=== PATIENT | female | born 1990 ===

== ENCOUNTER 2017-02-10 01:34 | Emergency (ER) | payer SELFPAY ==
[2017-02-10 01:38] VITALS: BMI 21.6
[2017-02-10 01:44] VITALS: TEMP 98.4
[2017-02-10] MEDS: Albuterol-Ipratrop 3 mg / 0.5 (3 ml) UD IH SCH ×3 (02:20→03:08)
[2017-02-10 02:21] VITALS: RESP 20
--- NOTE | 2017-02-10 02:23 | ED PDOC ---
Arrival/HPI - General Chief Complaint: Respiratory Distress Time Seen by Provider: 02/10/17 01:35 Historian: Patient - History of Present Illness Narrative History of Present Illness (Text): 02/10/17 02:19 Magali Bella, a 26 year old female, whose past medical history includes asthma, presents to the emergency department complaining of shortness of breath and an exacerbated cough for the past three days. Patient reports she has never been to the hospital before. She notes that from the first day of her cough, she also had a fever. Patient denies nausea, vomiting, chest pain, headache or any other complaints at this time. Time/Duration: Other (3 days) Symptom Onset: Gradual Symptom Course: Unchanged Activities at Onset: Rest Modifying Factors (Text): none Context: Home Associated Symptoms (Text): fever Past Medical History - Provider Review Nursing Documentation Reviewed: Yes - Travel History If Yes, travel location?: [facility] - Cardiac Hx Cardiac Disorders: No - Pulmonary Hx Asthma: Yes - Neurological Hx Neurological Disorder: No - HEENT Hx HEENT Disorder: No - Renal Hx Renal Disorder: No - Endocrine/Metabolic Hx Endocrine Disorders: No - Hematological/Oncological Hx Blood Disorders: No - Integumentary Hx Dermatological Disorder: No - Musculoskeletal/Rheumatological Hx Musculoskeletal Disorders: No - Gastrointestinal Hx Gastrointestinal Disorders: No - Genitourinary/Gynecological Hx Genitourinary Disorders: No - Psychiatric Hx Psychophysiologic Disorder: No Hx Substance Use: No - Surgical History Hx Appendectomy: Yes Family/Social History - Physician Review Nursing Documentation Reviewed: Yes Family/Social History: No Known Family HX Smoking Status: Never Smoked Hx Alcohol Use: Yes Frequency of alcohol use: Socially Hx Substance Use: No Allergies/Home Meds Allergies/Adverse Reactions: Allergies aspirin Allergy (Verified 02/10/17 01:38) ANAPHYLAXIS diclofenac Allergy (Verified 02/10/17 01:39) ANAPHYLAXIS shellfish derived Allergy (Verified 02/10/17 01:39) ANAPHYLAXIS Home Medications: Home Meds Medication Instructions Recorded Confirmed Albuterol HFA [Ventolin HFA 90 1 puff INH PRN PRN 02/10/17 02/10/17 mcg/actuation (8 g)] Review of Systems - Physician Review All systems were reviewed & negative as marked: Yes - Review of Systems Constitutional: Fevers Respiratory: SOB, Cough Gastrointestinal: absent: Nausea, Vomiting Neurological: absent: Headache Physical Exam Vital Signs Reviewed: Yes Vital Signs Temp Pulse Resp BP Pulse Ox 02/10/17 03:11 98.4 F 74 20 114/72 99 02/10/17 02:20 20 02/10/17 01:43 98.4 F 91 H 16 121/75 98 Temperature: Afebrile Blood Pressure: Normal Pulse: Regular Respiratory Rate: Normal Appearance: Positive for: Well-Appearing, Non-Toxic, Comfortable Pain Distress: None Mental Status: Positive for: Alert and Oriented X 3 - Systems Exam Head: Present: Atraumatic, Normocephalic Pupils: Present: PERRL Extroacular Muscles: Present: EOMI Conjunctiva: Present: Normal Mouth: Present: Moist Mucous Membranes Neck: Present: Normal Range of Motion Respiratory/Chest: Present: Wheezes (scattered). No: Accessory Muscle Use Cardiovascular: Present: Regular Rate and Rhythm, Normal S1, S2. No: Murmurs Abdomen: Present: Normal Bowel Sounds. No: Tenderness, Distention, Peritoneal Signs Upper Extremity: Present: Normal Inspection. No: Cyanosis, Edema Lower Extremity: Present: Normal Inspection. No: Edema Neurological: Present: GCS=15, CN II-XII Intact, Speech Normal Skin: Present: Warm, Dry, Normal Color. No: Rashes Psychiatric: Present: Alert, Oriented x 3, Normal Insight, Normal Concentration Medical Decision Making ED Course and Treatment: 02/10/17 02:26 Impression: 26 year old female with a mild cough. Differential Diagnosis include but are not limited to: Plan: -- Chest Xray -- Duoneb, Prednisone -- Reassess and disposition Progress Notes: 02/10/17 03:03 pt reassesed. states symptoms improved. lungs clear. asking for d/c. ?right perihilar fullness on cxr. will d/c on antibiotics. 02/10/17 03:04 satting 99%, smiling, speaking full sentences. 02/10/17 16:09 - RAD Interpretation Radiology Orders: 02/10/17 02:04 CXR [CHEST TWO VIEWS (PA/LAT)] [RAD] Stat - Medication Orders Current Medication Orders: Discontinued Medications Albuterol/Ipratropium (Duoneb 3 Mg/0.5 Mg (3 Ml) Ud) 3 ml IH Q15M KEY Stop: 04/15/17 02:46 Last Admin: 02/10/17 03:08 Dose: 3 ML Levofloxacin (Levaquin) 750 mg PO STAT STA Stop: 02/10/17 03:05 Last Admin: 02/10/17 03:17 Dose: 750 MG Prednisone (Prednisone Tab) 50 mg PO STAT STA Stop: 02/10/17 02:04 Last Admin: 02/10/17 02:20 Dose: 50 MG - [place] Statement The provider has reviewed the documentation as recorded by the Campos Mariscal All medical record entries made by the Campos were at my direction and personally dictated by me. I have reviewed the chart and agree that the record accurately reflects my personal performance of the history, physical exam, medical decision making, and the department course for this patient. I have also personally directed, reviewed, and agree with the discharge instructions and disposition. Disposition/Present on Arrival - Present on Arrival Any Indicators Present on Arrival: No History of DVT/PE: No History of Uncontrolled Diabetes: No Urinary Catheter: No History of Decub. Ulcer: No History Surgical Site Infection Following: None - Disposition Have Diagnosis and Disposition been Completed?: Yes Diagnosis: Asthma Disposition: HOME/ ROUTINE Disposition Time: 03:04 Condition: STABLE Discharge Instructions (ExitCare): Asthma (ED) Print Language: YI Additional Instructions: please follow up with your doctor/clinic. return to er with worsening symptoms or concerns. Prescriptions: Nebulizer [Aeroeclipse] 1 each MC Q6 PRN #1 each PRN Reason: Wheezing Albuterol 0.083% [Albuterol 0.083% Inhal Teresita (2.5 mg/3 ml) UD] 2.5 mg IH Q6 PRN #20 neb PRN Reason: Wheezing levoFLOXacin [Levaquin] 750 mg PO DAILY #7 tab Mask, Face [Nebulizer Aerosol Mask Adult] 1 dev XX PRN PRN #1 dev PRN Reason: Wheezing Prednisone 50 mg PO DAILY #5 tablet
[2017-02-10] MEDS ORDERED: levoFLOXacin 750 MG TAB PO STA (03:04)
[2017-02-10 03:11] VITALS: BP 114/72; PULSE 74; O2SAT 99
--- NOTE | 2017-02-10 09:54 | RAD ---
HISTORY: cough COMPARISON: No prior. TECHNIQUE: Chest PA and lateral FINDINGS: Increased left perihilar opacities LUNGS: The slightly low lung volumes with mild crowded bronchovascular markings the. Additionally, there are perihilar opacities left greater than right also likely due to poor inspiration however perihilar infiltrates to be excluded with followup radiographs. . PLEURA: No significant pleural effusion identified. No pneumothorax apparent. CARDIOVASCULAR: Normal. OSSEOUS STRUCTURES: No significant abnormalities. VISUALIZED UPPER ABDOMEN: Normal. OTHER FINDINGS: None. IMPRESSION: Crowded bronchovascular markings. May perihilar opacities may also be due to poor inspiration however perihilar infiltrates not completely excluded. Followup radiographs could be performed.
== END 2017-02-10 03:31 | disposition home or self-care (01) ==
LOC: ED 01:34
DX: J45.909 Unspecified asthma, uncomplicated (principal)